=== PATIENT | female | born 1960 | race Hispanic/Latino ===

== ENCOUNTER 2025-08-16 10:27 | Emergency (ER) | payer OTHER, SELFPAY ==
[2025-08-16 10:33] VITALS: BP 190/89
--- NOTE | 2025-08-16 11:52 | ED.GENMED ---
History of Present Illness
General
Chief Complaint: Anxiety
Source: patient and records
Time Seen by Provider: 08/16/25 10:58
History of Present Illness
History of Present Illness:
65-year-old female with past medical history of hypertension, hypothyroidism, anxiety presenting to the ER for evaluation of increased breakthrough anxiety over the last few months, left-sided ear discomfort, cough and a right upper extremity
tremor. Patient notes that she had previously been on Wellbutrin and escitalopram which had previously kept her anxiety under control however a little over 1 month ago started to have increased breakthrough anxiety so was switched from the
Wellbutrin to BuSpar but patient states that this has not been helping at all. She has not followed up with her primary care provider since being prescribed the BuSpar. She states that she is not sure that the anxiety is from a recent trip to
[place] as well as recent custodial. Patient made an appointment with neurology for the upper extremity tremor but this is not until October which she is upset about. The tremor is not new and something that she has been dealing with for quite
some time. No fevers or infectious symptoms, no chest pain, no shortness of breath, no palpitations, lower extremity edema or any other concerns. Patient states she plans to contact her primary care provider in the coming days to discuss her
minimal improvement with the BuSpar.
Past History
Past History
ED Past Medical History: HTN, Hypothyroidism and Psychiatric
ED Past Surgical History: Gynecological (Left breast biopsy 03/05/2017)
Social History
Tobacco: Non-smoker
Alcohol: None
Drug: None
Personal:
Living: with family
Employment: Employed
Family History
Family History: Other (Elderly mother is ill)
Review of Systems
Review of Systems
All Other Systems: ROS reviewed and negative except as documented in HPI and ROS
Phy Exam
Physical Exam
Physical Exam:
GENERAL: Alert , in no apparent distress, appears anxious however and pacing in the room
HEAD: Normocephalic atraumatic
EYE: conjunctiva clear
NECK: Supple
ENT: o/p clr, mmm.
CARDIAC: Regular rate and rhythm
LUNGS: Clear breath sounds bilaterally, no acute respiratory distress, no wheezes/rales/rhonchi
NEUROLOGICAL: Alert and oriented, resting tremor intermittently to RUE
SKIN: Warm and dry, skin intact.
MUSCULOSKELETAL: well perfused.
PSYCH: Normal and appropriate interaction.
Scores
Heart Failure Risk
Heart Failure Risk Score: Not Applicable
Heart Score for Chest Pain Patients
STEMI patient?: Not applicable
Withdrawal Assessment of Alcohol
Withdrawal Assessment Completed?: Not applicable
Course
Orders/Labs/Results
Orders:
Orders
08/16/25 11:18
CR Chest - 2 Views Urgent
Comment:
Reason For Exam: cough
08/16/25 11:19
Lorazepam [Ativan] 1 mg PO NOW STA
08/16/25 12:04
Basic Metabolic Panel Urgent
Complete Blood Count/With Diff Urgent
Abnormal Lab Results
08/16/25
12:04
MPV 11.9 H fL
(7.4-10.4)
Glucose 101 H mg/dl
(70-99)
Calcium 10.6 H mg/dl
(8.4-10.2)
08/16/25 12:04
08/16/25 12:04
Vital Signs
Initial and Last Documented VS:
Initial Vital Signs
Temp Pulse Resp BP Pulse Ox
98.3 F 63 20 190/89 96
08/16/25 10:33 08/16/25 10:33 08/16/25 10:33 08/16/25 10:33 08/16/25 10:33
Last Documented Vital Signs
Temp Pulse Resp BP Pulse Ox
98.3 F 63 20 190/89 96
08/16/25 10:33 08/16/25 10:33 08/16/25 10:33 08/16/25 10:33 08/16/25 11:57
MDM/Problems Addressed
Differential Diagnosis Includes:
Acute on chronic anxiety
Medication side effects
Benign tremor
Electrolyte imbalance
Otitis media/Externa
Sinusitis
Viral syndrome
Pneumonia
MDM/Problems Addressed:
65-year-old female presenting to the ER for a multitude of symptoms, most pressing and what brought her mainly today was more about her breakthrough anxiety and minimal improvement with BuSpar that she was prescribed just over 1 month ago. She does
have elevated blood pressure here. I reviewed her records and patient was seen here similarly in 2021 with almost the exact same story. She is in no acute distress. Will check labs, chest x-ray and treat with Ativan. Disposition pending.
*Radiology
Radiology exam reviewed: preliminary read by ED provider (Normal chest x-ray)
*Pulse Oximetry
SaO2: 96
Oxygen Mode of Delivery: Room air
Patient hypoxic: no
*Critical Care Note
Total Time (30-74mins, 75-104mins- exclusive of procedures): Not Applicable
Data Reviewed
Review of Other/Old Records Reveals: Records
Source: patient, records and family
Patient Management
Discussion with other providers: PCP
Escalation/DeEscalation of care consider admission/obs:
I did contact patient's primary care provider, Dr. Sweet, at [facility] and notified her about patient's visit to the ER and she will have staff reach out to the patient to help arrange for an outpatient follow-up.
Patient's workup is unremarkable for any acute pathologies, at this time I think she is stable for discharge home. She was provided with printouts from the crisis staff for outpatient based follow-up and provided with information for neurology.
Aware of return precautions. Stable for discharge
ED Attending Note
-
Portions of this chart may have been created with voice recognition software.� Occasional wrong word or��sound alike� substitutions may have occurred due to the inherent limitations of voice recognition software.
Discharge Plan
Departure
Patient Disposition: Home (Routine Discharge)
Date of Disposition: 08/16/25
Time of Disposition: 13:00
Patient with high blood pressure during this ER visit?: Yes
Discharge Problem:
Anxiety, Benign essential tremor
Instructions: Anxiety, Adult (DC)
Prescriptions:
No Action
lorazepam [Ativan] 0.5 mg tablet
0.5 mg PO DAILY PRN (Reason: anxiety) Qty: 10 0RF
albuterol sulfate [ProAir HFA] 90 mcg/actuation Hfa Aerosol Inhaler
2 puff INHALATION Q4HPRN PRN (Reason: shortness of breath/cough) Qty: 90 0RF
Rx Instructions:
Dispense with spacer
Referrals:
Carolyn Pak MD [Non-Admitting Privileges, Psychiatry]
Referral Note: [facility]
Valery Sweet MD [Family Provider, Family Practice]
Interventions
Interventions:
*Risk Screen - Suicide Last Done: 08/16/25 10:33
*General Assessment Last Done: 08/16/25 10:33
*Neglect/Abuse Screening Last Done: 08/16/25 10:33
*ED- Fall Risk Assessment Last Done: 08/16/25 13:21
*ED COVID-19 Vaccine History Last Done: 08/16/25 13:21
*ED Influenza Vaccine History Last Done: 08/16/25 13:21
*Nursing Disposition Last Done: 08/16/25 13:22
ED-Psychological Assessment Last Done: 08/16/25 12:00
Discharge Date and Time
Discharge Date/Time: 08/16/25 13:23
Print Language: DANISH
[2025-08-16] MEDS: ATIVAN 1 MG PO (11:58)
[2025-08-16 12:13] LABS: Hematocrit 45.1 % (37.0-47.0); Hemoglobin 15.4 g/dL (12.0-16.0); Mean Corp Hgb Conc. 34.1 g/dL (33.0-37.0); Mean Corpuscular Volume 88.1 fL (81.0-99.0); Nucleated Red Blood Cells % 0 %; Platelet Count 247 10^3/uL (130-400); Red Cell Dist. Width 12.8 % (11.5-14.5)
[2025-08-16 12:40] LABS: Blood Urea Nitrogen 15 mg/dl (7-17); Calcium 10.6 mg/dl (8.4-10.2); Carbon Dioxide 28 mmol/L (22-30); Chloride 105 mmol/L (98-107); Glucose 101 mg/dl (70-99); Potassium 4.6 mmol/L (3.5-5.1); Sodium 138 mmol/L (135-145); eGFR > 60.00
== END 2025-08-16 13:23 | disposition home or self-care (01) ==
LOC: EMR 10:27
PROVIDERS: Physician Assistant Medical; EMERGENCY PHYSICIAN Emergency Medicine; FAMILY PHYSICIAN Family Medicine
DX: F41.9 Anxiety disorder, unspecified (principal); G25.0 Essential tremor; I10 Essential (primary) hypertension; E03.9 Hypothyroidism, unspecified
CPT/HCPCS: 99284; 71046; 80048; 85025